=== PATIENT | female | born 1995 | race Caucasian/White ===

== ENCOUNTER 2016-06-08 13:27 | Emergency (ER) | payer OTHER | END 2016-06-08 16:37 | disposition home or self-care (01) | LOC: ER 13:27 | DX: N73.9 Female pelvic inflammatory disease, unspecified (principal); B37.3 Candidiasis of vulva and vagina; R42 Dizziness and giddiness | CPT/HCPCS: 36415; 87502; 96361; 96365; 96375; J0696; J1885 ==